=== PATIENT | male | born 1960 | race Hispanic/Latino ===

== ENCOUNTER 2025-03-10 04:22 | Emergency (ER) | payer BC, OTHER ==
[~2025-03-10] VITALS: Ht 177.8 cm; Wt 87.5 kg
--- NOTE | 2025-03-10 04:56 | ERN ---
General Chief Complaint: Lower Extremity Pain/Injury Stated Complaint: PAIN TO LOWER EXTREMITIES, RIGHT KNEE, LEFT ANKLE Time Seen by MD: 04:51 History of Present Illness Initial Comments 64-year-old male with a history of gout comes in with 10 days of increased swelling to his right knee left ankle and right MCP joints. He is asking for an IM injection of pain medicine and a prescription for colchicine. No other symptoms no fevers no chills urinating okay no change in bowel habits. Allergies: Coded Allergies: No Known Allergies (Unverified Allergy, Unknown, 03/10/25) Past Medical History Past Medical History: Other Medical History Other: GOUT Past Surgical History: None Constitutional: (-) chills, (-) diaphoresis, (-) fever, (-) malaise, (-) weakness, (-) other documentation EENTM: (-) eye pain, (-) blurred vision, (-) tearing, (-) double vision, (-) ear pain, (-) ear discharge, (-) nose pain, (-) nose congestion, (-) throat pain, (-) Throat swelling, (-) mouth pain, (-) tooth pain, (-) mouth swelling, (-) other documentation Respiratory: (-) cough, (-) orthopnea, (-) short of breath, (-) stridor, (-) w heezing, (-) other documentation Cardiovascular: (-) chest pain, (-) edema, (-) palpitations, (-) syncope, (-) dyspnea on exertion, (-) other documentation Gastrointestinal/Abdominal: (-) nausea, (-) vomiting, (-) diarrhea, (-) abdominal pain, (-) abdominal distention, (-) constipation, (-) rectal bleeding, (-) dark stool/melena, (-) other documentation Musculoskeletal: (-) Neck pain, (-) back pain, (-) Flank Pain, (-) joint pain, (-) joint swelling, (-) muscle pain, (-) muscle stiffness, (-) gout, (-) other documentation Physical Exam General Appearance: (+) no apparent distress Orientation: (+) alert, (+) oriented x 3 Head/Face Trauma: No Eye: bilateral eye normal inspection, bilateral eye PERRL, bilateral eye EOMI Ear, Nose, Throat: (+) hearing grossly normal, (+) normal ENT inspection, (+) moist mucous membraine Neck: (+) normal inspection, (+) supple, (+) full range of motion Respiratory: (+) chest non-tender, (+) lungs clear, (+) well ventilated Heart: (+) regular, (+) no gallop Vascular: (+) no edema, (+) normal peripheral pulse Gastrointestinal: (+) soft, (+) non-tender, (+) bowel sound present Extremities Comment Right knee does have some medial swelling and also a hard mass coming up out of the patella. Left ankle is swollen. There is minimal swelling on the some pain in his right hand MCP joints two and three. Results Laboratory and Microbiology Lab and Micro Result Laboratory Tests Test 03/10/25 06:00 White Blood Count 8.2 K/uL (4.8-10.8) Red Blood Count 3.56 MIL/uL (4.50-6.20) L Hemoglobin 11.0 g/dL (14.0-18.0) L Hematocrit 32.0 % (42-54) L Mean Corpuscular Volume 89.9 fL (79-99) Mean Corpuscular Hemoglobin 30.9 pg (27.0-33.0) Mean Corpuscular Hemoglobin Concent 34.4 g/dL (32.0-36.0) Red Cell Distribution Width 13.4 % (11.0-15.5) Platelet Count 190 K/uL (130-400) Mean Platelet Volume 9.7 fL (7.5-10.5) Immature Granulocyte % (Auto) 0.5 % (0-1) Neutrophils (%) (Auto) 69.7 % (40.0-77.0) Lymphocytes (%) (Auto) 17.6 % (21.0-51.0) L Monocytes (%) (Auto) 10.6 % (3.0-13.0) Eosinophils (%) (Auto) 1.1 % (0.0-8.0) Basophils (%) (Auto) 0.5 % (0.0-5.0) Neutrophils # (Auto) 5.7 K/uL (1.8-7.7) Lymphocytes # (Auto) 1.4 K/uL (1.0-4.8) Monocytes # (Auto) 0.9 K/uL (0.1-1.0) Eosinophils # (Auto) 0.09 K/uL (0.00-0.70) Basophils # (Auto) 0.04 K/uL (0.00-0.20) Absolute Immature Granulocyte (auto 0.04 K/uL (0-1) Nucleated Red Blood Cells 0.0 % (0.0-0.19) Sodium Level 137 mmol/L (136-145) Potassium Level 3.8 mmol/L (3.5-5.1) Chloride Level 102 mmol/L (101-111) Carbon Dioxide Level 23 mmol/L (21-32) Blood Urea Nitrogen 28 mg/dL (7-18) H Creatinine 1.2 mg/dL (0.5-1.3) Glomerular Filtration Rate Calc 68 mL/min (>90) Random Glucose 91 mg/dL (70-105) Total Calcium 9.5 mg/dL (8.5-10.1) MDM MDM: Differential diagnosis: Patient's symptoms certainly could be caused by a resurgence of his gout. , he has lost a lot of weight recently which may contribute. Other arthritis could be a cause. Rationale: Tests considered and ordered secondary to shared decision making include: Previous outside records reviewed: Old ER visits. Risk of complication and/or morbidity or mortality of patient management: None Medications-Per medication reconciliation Need for hospitalization: Patient does meet criteria for hospitalization. Need for emergency major/minor surgery: No There are no social concerns with this patient. Prescription drug management Prescriptions will include symptomatic care Patient's prior external medical records from other ER visits were reviewed by migdalia avila as indicated. Prior testing and results from previous visits were reviewed. Prior tests were taken into account with medical decision making and resource utilization, independent historian/historians were used to obtain complete medical history. I independently interpreted the test that were performed, results were reviewed by me and considered findings on radiology if ordered. I will get plain films of his knee ankle and hand. I will order labs including an ESR. Some oral indomethacin for pain. Plain films are consistent with gout on the patient's right knee and hand. Assume the left ankle are also gout he lesions as well. They do sort of have valley appearance. Patient's BUN is slightly elevated although this could be from all of the ibuprofen that the patient has been taking for the last several days. I will discharge the patient with indomethacin and recommend he follow-up with his primary care provider before starting colchicine. ED Course Orders Procedure Category Date Status Time Lactated Ringers PHA 03/10/25 Complete 1000ml (Lactated 05:31 Cbc With Differential LAB 03/10/25 Complete 05:50 Basic Metabolic Panel LAB 03/10/25 Complete 05:50 Knee 3vws Rt RAD 03/10/25 Taken 05:50 Ankle Comp 3vws Lt RAD 03/10/25 Taken 05:50 Hand 3+Vws Rt RAD 03/10/25 Taken 05:50 Current Medications Medications (Trade) Dose Ordered Sig/Jordan Route PRN Reason Start Time Stop Time Status Last Admin Dose Admin Lactated Ringer's (Lactated Ringers 1000ml) 1,000 ml BOLUS STAT IV 03/10/25 05:31 03/10/25 05:32 DC 03/10/25 05:52 Vital Signs Date Time Temp Pulse Resp B/P (MAP) Pulse Ox O2 Delivery O2 Flow Rate FiO2 03/10/25 04:26 98.1 82 16 158/95 99 Room Air 0 DX & DISP Disposition: Discharge Departure Impression: Primary Impression: Gout Condition: Stable Scripts Indomethacin (Indomethacin) 50 Mg Capsule 1 CAP PO TID for arthritis for 10 Days, #30 CAP 0 Refills with food Prov: SUSAN MCKINLEY MD 03/10/25 Additional Instructions: X-ray findings are consistent with gout. I will discharge you with a prescription for indomethacin at a fairly high dose. Please follow-up with your primary care physician to taper down the dose of the indomethacin as the pain improves. Also see your primary care physician or director fraud for colchicine prescription. SUSAN MCKINLEY MD Mar 10, 2025 04:56
[2025-03-10] MEDS: LACTATED RINGERS 1000ML IV STA (05:52)
[2025-03-10 06:14] LABS: IMMATURE GRANULOCYTE ABSOLUTE 0.04 K/uL (0-1); NUCLEATED RED BLOOD CELLS 0.0 % (0.0-0.19); PLATELET COUNT (AUTO) 190 K/uL (130-400); RED BLOOD CELL COUNT(AUTO) 3.56 MIL/uL (4.50-6.20); RED CELL DISTRIBUTION WIDTH 13.4 % (11.0-15.5); WHITE BLOOD COUNT (AUTO) 8.2 K/uL (4.8-10.8)
[2025-03-10 06:26] LABS: CREATININE 1.2 mg/dL (0.5-1.3); GLOMERULAR FILTR. RATE CALC 68.0 mL/min (>90); GLUCOSE,RANDOM 91.0 mg/dL (70-105); SODIUM SERUM 137.0 mmol/L (136-145); UREA NITROGEN, BLOOD 28.0 mg/dL (7-18)
[2025-03-10] MEDS ORDERED: INDO50CA98 PO (06:39)
[2025-03-10 06:48] VITALS: BP 152/87; PULSE 80; RESP 18; TEMP 98; O2SAT 97
--- NOTE | 2025-03-10 06:49 | HMCIMG ---
EXAM: CR right ankle, 3 View. CLINICAL HISTORY: gout COMPARISON: None provided. FINDINGS: BONES: No acute fracture or aggressive appearing osseous lesion. Small enthesophyte at the distal Achilles tendon insertion. JOINTS: Mild tibiotalar and posterior subtalar joint osteoarthritis. Mild midfoot joint osteoarthritis. No dislocation. No radiographic evidence of a joint effusion. SOFT TISSUES: The soft tissues are unremarkable. IMPRESSION: 1. No acute findings. 2. Mild tibiotalar, posterior subtalar, and midfoot osteoarthritis. /[place]
--- NOTE | 2025-03-10 06:50 | HMCIMG ---
EXAM: CR right Hand, 3 View. CLINICAL HISTORY: gout COMPARISON: None provided. FINDINGS: BONES: No acute osseous pathology evident. JOINTS: No evidence of dislocation. Mild to moderate multifocal osteoarthritis, more pronounced at the third proximal interphalangeal joint. SOFT TISSUES: The soft tissues appear within normal limits. No radiopaque foreign body is seen. IMPRESSION: 1. No acute findings. 2. Mild to moderate osteoarthritis, most prominent at the third PIP joint. /[place]
--- NOTE | 2025-03-10 06:51 | HMCIMG ---
EXAM: CR right Knee, 3 View. CLINICAL HISTORY: gout COMPARISON: None provided. FINDINGS: BONES: No acute fracture or aggressive appearing osseous lesion. Enthesophytes at the proximal and distal patellar tendon attachments. JOINTS: Patellofemoral compartment predominant moderate to severe tricompartmental right knee joint osteoarthritis. There is no joint effusion appreciated. SOFT TISSUES: The soft tissues are unremarkable. IMPRESSION: 1. No acute osseous injury. 2. Moderate to severe tricompartmental right knee osteoarthritis, predominantly in the patellofemoral compartment. /[place]
== END 2025-03-10 06:57 | disposition home or self-care (01) ==
LOC: EDH 04:22
DX: M10.9 Gout, unspecified (principal)
CPT/HCPCS: 99283; 80048; 85025; 36415; 73610; 73130; 73562; J7120